=== PATIENT | male | born 1995 | race Caucasian/White ===

== ENCOUNTER 2018-02-23 17:08 | Emergency (ER) | payer MEDICAID ==
[~2018-02-23] VITALS: Ht 172.7 cm; Wt 63.5 kg
[2018-02-23 17:08] VITALS: BP_SYST 122
[2018-02-23] MEDS ORDERED: NACL 0.9% 1,000 ML IV ONE (17:51)
[2018-02-23] MEDS ORDERED: MORPHINE 4 MG/ML INJ. SYRINGE IVP ONE (18:00)
[2018-02-23] MEDS ORDERED: DIPHENHYDRAMINE INJ 50 MG/ML VIAL IVP ONE (18:00)
[2018-02-23] MEDS ORDERED: ONDANSETRON HCL 4 MG/2 ML VIAL IVP ONE (18:00)
[2018-02-23 18:20] LABS: BILIRUBIN,URINE NEGATIVE (NEGATIVE); BLOOD, URINE NEGATIVE (NEGATIVE); CLARITY/URINE CLEAR (CLEAR); COLOR,URINE YELLOW (YELLOW); GLUCOSE,URINE NEGATIVE (NEGATIVE); KETONES,URINE NEGATIVE (NEGATIVE); LEUKOCYTE ESTERASE ,URINE 1+ (NEGATIVE); NITRITE, URINE NEGATIVE (NEGATIVE); PROTEIN URINE NEGATIVE (NEGATIVE); UROBILINOGEN,URINE 0.2 (0.2-1.0)
[2018-02-23 18:27] LABS: BASOPHILS # (AUTO) 0.1 K/uL (0.0-0.2); BASOPHILS % (AUTO) 1.2 % (0.0-2.0); EOSINOPHILS # (AUTO) 0.3 K/uL (0.0-0.4); EOSINOPHILS % (AUTO) 2.9 % (0.0-4.0); HEMATOCRIT 47.4 % (36-54); HEMOGLOBIN 15.8 g/dL (14.0-18.0); LYMPHOCYTES # (AUTO) 3.4 K/uL (1.0-5.5); LYMPHOCYTES % (AUTO) 33.1 % (20.5-51.5); MEAN CORPUSCULAR HEMOGLOBIN 30 pg (27-31); MEAN CORPUSCULAR HGB CONC 33 % (32-36); MEAN CORPUSCULAR VOLUME 89 fL (79.0-98.0); MONOCYTES # (AUTO) 0.9 K/uL (0.0-1.0); NEUTROPHILS # (AUTO) 5.5 K/uL (1.8-7.7); NEUTROPHILS % (AUTO) 53.8 % (40.0-70.0); PLATELET COUNT (AUTO) 257 K/uL (130-430); RED BLOOD CELL COUNT(AUTO) 5.36 MIL/uL (4.2-6.2); RED CELL DISTRIBUTION WIDTH 12.4 % (9.0-15.0); WHITE BLOOD COUNT (AUTO) 10.2 K/uL (4.8-10.8)
[2018-02-23 18:29] LABS: BACTERIA,URINE MODERATE /HPF (None Seen); MUCUS,URINE 1+ /LPF (None Seen); RBC,URINE 0-3 /HPF (0-3)
[2018-02-23 18:30] LABS: ANION GAP 8 (5-15); CHLORIDE 103 mmol/L (98-107); CREATININE 0.86 mg/dL (0.55-1.30); GLUCOSE 83 mg/dL (70-99); POTASSIUM 3.7 mmol/L (3.5-5.1); SODIUM SERUM 139 mmol/L (136-145); UREA NITROGEN, BLOOD 14 mg/dL (8-21)
[2018-02-23 18:33] LABS: PROTHROMBIN TIME 10.5 SECS (9.5-12.5)
[2018-02-23 18:35] LABS: ALANINE AMINOTRANSFERASE 30 U/L (12-78); ALBUMIN 4.5 g/dL (3.4-4.8); ASPARTATE AMINOTRANSFERASE 12 U/L (10-37); LIPASE 113 U/L (73-393); TOTAL BILIRUBIN 0.6 mg/dL (0.0-1.0)
[2018-02-23 18:36] LABS: ALCOHOL, BLOOD < 3 mg/dL (<10); GFR AFRICAN AMERICAN 144 mL/min (>90)
[2018-02-23 18:36] LABS: BARBITURATE, URINE NEGATIVE (NEG <=200); BENZODIAZEPINE, URINE NEGATIVE (NEG <=150); CANNABINOID, URINE NEGATIVE (NEG <=50); COCAINE, URINE NEGATIVE (NEG <=150); METHAMPHETAMINES SCREEN,URINE NEGATIVE (NEG <=500); OPIATE, URINE POSITIVE (NEG <=100); PHENCYCLIDINE SCREEN,URINE NEGATIVE (NEG <=25); UR TRICYCLIC ANTIDEPRESSANTS NEGATIVE (NEG <=300); URINE AMPHETAMINE NEGATIVE (NEG <=500); URINE METHADONE NEGATIVE (NEG <=200); URINE OXYCODONE SCREEN NEGATIVE (NEG <=100); URINE PROPOXYPHENE SCREEN NEGATIVE (NEG <=300)
[2018-02-23 19:50] VITALS: BP_SYST 118
== END 2018-02-23 19:50 | disposition home or self-care (01) ==
LOC: SED 17:08
DX: G43.909 Migraine, unspecified, not intractable, without status migrainosus (principal); R03.0 Elevated blood-pressure reading, without diagnosis of hypertension
CPT/HCPCS: 36415; 70450; 80053; 80307; 81000; 83690; 85025; 85610; 85730; 87086; 93005; 96361; 96374; 96375; 99285; G0482; J1200; J2270; J2405; J7030

== ENCOUNTER 2021-02-23 10:43 | Emergency (ER) | payer MEDICAID ==
[~2021-02-23] VITALS: Ht 172.7 cm; Wt 68.0 kg
[2021-02-23 10:43] VITALS: BP_SYST 114
--- NOTE | 2021-02-23 10:43 | NUR ---
BROUGHT BACK TO BED #8 AND TRIAGED. REPORT GIVEN TO TEAGAN
--- NOTE | 2021-02-23 10:45 | NUR ---
ER at bedside examining patient.
--- NOTE | 2021-02-23 11:13 | NUR ---
Pt. came in with c/o pain to left knee 3/10 when leg flexed and at rest, 8/10 pain if pt. trys to extend leg, pt. was playing soccer last night and someone ran into him and his knee got "jammed inward."
--- NOTE | 2021-02-23 11:18 | NUR ---
radiology at bedside for xray
--- NOTE | 2021-02-23 11:55 | NUR ---
Crutches properly fitted for patient by myself. Patient given crutch walking instructions and demonstration. Is able to demonstrate adequate crutch walking technique with crutches provided. Knee immobilizer also palced on.
[2021-02-23] MEDS ORDERED: IBUP-1969 PO (12:00)
[2021-02-23 12:15] VITALS: BP_SYST 122
--- NOTE | 2021-02-23 12:17 | NUR ---
Patient given written and verbal discharge instructions and verbalizes understanding. ER Dr. Spencer discussed with patient the results and treatment provided. Patient in stable condition. ID arm band removed. Rx of Motrin given. Patient educated on pain management and to follow up with PMD. Pain Scale 3. Opportunity for questions provided and answered. Medication side effect fact sheet provided.
== END 2021-02-23 12:17 | disposition home or self-care (01) ==
LOC: SED 10:43
DX: S83.92XA Sprain of unspecified site of left knee, initial encounter (principal); Z88.8 Allergy status to other drugs, medicaments and biological substances; Z79.899 Other long term (current) drug therapy; X50.0XXA Overexertion from strenuous movement or load, initial encounter; Y93.66 Activity, soccer; Y92.89 Other specified places as the place of occurrence of the external cause; Y99.8 Other external cause status
CPT/HCPCS: 73564; 99283